=== PATIENT | male | born 1955 | race Caucasian/White ===

== ENCOUNTER 2019-02-08 15:10 | Outpatient (CLI) | payer BC ==
--- NOTE | 2019-02-08 15:25 | RAD ---
EXAM: Two views chest PROVIDED CLINICAL HISTORY: Cough. Shortness of breath and wheezing for 2 months. COMPARISON: 11/21/2015 FINDINGS: Cardiac silhouette and pulmonary vasculature are within normal limits. The lungs are clear. Postsurg ical changes lower cervical spine are noted. There is a rounded area of increased density seen in the lower mediastinum on the frontal projection with associated small gas density. Patient was shown to have small hiatal hernia on CT abdomen on 05/25/2016. No other interval change. Vascular locations are seen in the thoracic aorta IMPRESSION: 1. No acute cardiopulmonary process. 2. Small hiatal hernia..
== END 2019-02-08 15:11 | disposition home or self-care (01) ==
LOC: BICRAD 15:10
PROVIDERS: ATTEND Physician Assistant
DX: R05 Cough (principal); K44.9 Diaphragmatic hernia without obstruction or gangrene
CPT/HCPCS: 71046

== ENCOUNTER 2019-03-06 07:10 | Outpatient (CLI) | payer BC | END 2019-03-06 07:11 | disposition home or self-care (01) | LOC: CP 07:10 | PROVIDERS: ATTEND Family Medicine | DX: J45.41 Moderate persistent asthma with (acute) exacerbation (principal) | CPT/HCPCS: 94010 ==

== ENCOUNTER 2020-08-24 05:37 | Observation (INO) | payer MEDICARE ==
[2020-08-21 14:50] VITALS: BMI 27.2
[2020-08-24] MEDS ORDERED: Ketorolac Tromethamine 30 MG/ML VIAL ONE (06:39)
[2020-08-24] MEDS ORDERED: Acetaminophen 500 MG TAB ONE (06:39)
[2020-08-24] MEDS ORDERED: Fentanyl 100 MCG/2 ML VIAL ONE (06:43)
[2020-08-24] MEDS ORDERED: XYLOCAINE 2%-EPI 1:100,000 20 ML VIAL ONE (06:58)
[2020-08-24] MEDS ORDERED: Bupivacaine 0.25% HCL 30 ML VIAL ONE (06:58)
[2020-08-24] MEDS ORDERED: Scopolamine 1.5 mg/72 hour Patch ONE (07:08)
[2020-08-24] MEDS ORDERED: Famotidine/PF 20 mg/2ml Vial ONE (07:13)
[2020-08-24] MEDS ORDERED: Midazolam HCl 2 mg/2 ml Vial ONE (07:14)
[2020-08-24] MEDS ORDERED: HYDROmorphone 2 MG/ML VIAL SLOW IVP PRN (09:16)
[2020-08-24] MEDS ORDERED: Promethazine HCl 25 MG/ML VIAL SLOW IVP PRN (09:16)
[2020-08-24] MEDS ORDERED: Meperidine HCl/PF 25 MG/ML VIAL SLOW IVP PRN (09:16)
[2020-08-24] MEDS ORDERED: Promethazine HCl 25 MG/ML VIAL IM PRN ×2 (09:16→18:28)
--- NOTE | 2020-08-24 10:39 | OP ---
DATE OF PROCEDURE: 08/24/2020 PREOPERATIVE DIAGNOSES: Hiatal hernia; gastroesophageal reflux disease, refractory to medical treatment; incisional hernia, umbilical area, prior repair; history of prostatectomy. POSTOPERATIVE DIAGNOSES: Hiatal hernia; gastroesophageal reflux disease, refractory to medical treatment; incisional hernia, umbilical area, prior repair; history of prostatectomy. PROCEDURES PERFORMED: Laparoscopic hiatal hernia repair over a 48-Namibian bougie; laparoscopic floppy Zakia fundoplication; completion upper endoscopy; incisional hernia repair without mesh, umbilical area, PDS sutures used. ANESTHESIA: General, local 0.5% Marcaine 30 mL mixed with 1% Xylocaine with epinephrine 20 mL. DESCRIPTION OF PROCEDURE: The patient was taken to the operating room, where under general anesthesia in reverse Trendelenburg position and dorsal lithotomy position, the abdomen was clipped of hair, prepared with ChloraPrep, and draped in routine fashion. Due to a prior supraumbilical midline incision, a right lateral subcostal incision was made. Pneumoperitoneum to 15 mmHg was obtained with a Veress needle, replaced with a 5 port, and laparoscope inserted. Right subxiphoid incision was made and left subxiphoid incision was made, and a 5 mm and 11 mm port placed respectively. Left lateral subcostal incision was made and a 5 port placed. A snake liver retractor was inserted through the right lateral subcostal port, reflecting the left lobe of the liver superiorly and cephalad. Hiatal hernia was identified. The lesser curvature, gastrohepatic ligament was taken down with the LigaSure in avascular plane preserving a gastric pedicle. Hiatus was dissected free circumferentially. Gastrosplenic ligament was taken down with LigaSure, mobilizing the upper third to half of fundus up to the hiatus, which was dissected free on the left circumferentially and a Omar drain was placed through an 11 mm port and held in place with a 5 mm port placed in the left lower quadrant umbilical level, slightly below. Bougie was placed under laparoscopic visualization from a 36 to 48-Namibian bougie. There was some restriction, so 48-Namibian was the largest. Posterior and anterior hiatus closed with 2 sutures of 0 Bralon with a tie knot. This was adequately tied without being overly tight. Zakia fundoplication was undertaken, wrapping the lower esophagus with the upper stomach and fundus, securing the wrap in a loose fashion, superiorly from the left and right sides to the esophagus about 2 cm inferiorly, stomach to stomach, and 2 cm inferior to that, stomach to stomach and another bite of the esophagus. The wrap was adequately floppy for floppy Zakia fundoplication and wrap looked good. Wrap was then secured to the right anterior crura with 0 Bralon tie knot. Endoscopy was performed revealing the scope passed easily visualizing the pylorus. Stomach was not torsed. Retroflexion revealed typical Zakia fundoplication changes. This visualized around the esophagus. Scope was withdrawn. Stomach was deflated. Gastropexy was undertaken fixating the stomach to the anterior abdominal wall. Left lateral subcostal with 0 Bralon. Once this was completed, adhesions to the previous hernia repair were taken down with the LigaSure. Omentum was freed from the abdominal wall. Pneumoperitoneum was reduced. All instruments were removed. Infraumbilical incision was made curvilinear and carried down through skin and subcutaneous tissue. Umbilical hernia repair was undertaken. Fascial defect was closed with interrupted sutures of 0 PDS [id number]. Subcutaneous tissue was approximated with 3-0 Monocryl and skin with subdermal 4-0 Monocryl. Left subxiphoid fascia was approximated with 0 Vicryl. All skin incisions were approximated with interrupted subdermal 4-0 Monocryl. Local anesthetic had been infiltrated in the skin and subcutaneous tissue about all port sites. The patient tolerated the procedure well. Job ID: [id number]
[2020-08-24] MEDS ORDERED: Rocuronium Bromide 10 MG/ML (10ML VIAL) ONE (10:46)
[2020-08-24] MEDS ORDERED: ePHEDrine 50 MG/ML VIAL ONE (10:46)
[2020-08-24] MEDS ORDERED: PROPOFOL 200 MG/20 ML VIAL ONE (10:46)
[2020-08-24] MEDS ORDERED: Ondansetron PF 4 MG/2 ML Vial ONE (10:46)
[2020-08-24] MEDS ORDERED: Glycopyrrolate 0.2 MG/ML 5 ML SYRINGE ONE ×2 (10:46)
[2020-08-24] MEDS ORDERED: Lidocaine 1% PF 5 ML VIAL ONE (10:46)
[2020-08-24] MEDS ORDERED: Dexamethasone 20 MG/5 ML VIAL ONE (10:46)
[2020-08-24] MEDS ORDERED: hydrALAZINE 20 MG/ML VIAL SLOW IVP PRN (11:08)
[2020-08-24] MEDS ORDERED: Morphine 2 MG/ML VIAL SLOW IVP PRN (11:08)
[2020-08-24] MEDS ORDERED: diphenhydrAMINE 50 MG/ML VIAL IVP PRN ×2 (11:08→18:28)
[2020-08-24] MEDS ORDERED: Hydrocodone-Acetamin 15 ML UDCUP PO PRN (11:08)
[2020-08-24] MEDS ORDERED: Ondansetron PF 4 MG/2 ML Vial IVP PRN ×2 (11:08→18:28)
[2020-08-24] MEDS: Ketorolac Tromethamine 30 MG/ML VIAL IVP SCH ×2 (12:49→17:59)
[2020-08-24] MEDS: Morphine 4 MG/ML VIAL SLOW IVP PRN ×2 (14:57→17:00)
[2020-08-24] MEDS: Lactated Ringer's 1,000 ML IV SCH (17:59)
[2020-08-24] MEDS ORDERED: Naloxone HCl 0.4 mg/ml Vial IV PRN (18:28)
[2020-08-24] MEDS ORDERED: Zolpidem Tartrate 5 MG TAB PO PRN (18:28)
[2020-08-24] MEDS ORDERED: diphenhydrAMINE 50 MG/ML VIAL IM PRN (18:28)
[2020-08-24] MEDS ORDERED: fentaNYL Citrate/PF 2,000 MCG in Sodium Chloride 0.9% 60 ML IV PRN (18:28)
[2020-08-24] MEDS ORDERED: diphenhydrAMINE 25 MG CAP PO PRN (18:28)
[2020-08-24] MEDS ORDERED: Communication Order-Pharmacy FS SCH (18:30)
[2020-08-24] MEDS ORDERED: Enoxaparin Sodium 40 MG/0.4 ML SYRINGE SC SCH (21:00)
[2020-08-24] MEDS: Pregabalin 75 MG CAP PO SCH (21:26)
[2020-08-25] MEDS: Lactated Ringer's 1,000 ML IV SCH (00:09)
[2020-08-25] MEDS: Ketorolac Tromethamine 30 MG/ML VIAL IVP SCH ×2 (00:09→05:57)
[2020-08-25 06:02] LABS: #Lymphocytes 1.2 thou/uL (1.20-3.40); #Neutrophils 8.9 thou/uL (1.40-6.50); %Basophils 0.1 % (0.0-1.0); %Eosinophils 0.2 % (0.0-10.0); %Lymphocytes 10.7 % (21.0-51.0); %Monocytes 8.6 % (0.0-10.0); %Neutrophils 80.4 % (42.0-75.0); Hemoglobin 10.1 g/dL (14.0-18.0); Mean Corpuscular HGB CONC 31.5 g/dL (32.0-36.0); Mean Corpuscular Hemoglobin 24.6 pg (27.0-31.0); Mean Corpuscular Volume 78.1 fL (78.0-98.0); Mean Platelet Volume 7.8 fL (7.4-10.4); Platelet Count 261 thou/uL (130-400); RBC Distribution Width 13.5 % (11.5-14.5); Red Blood Cell (RBC) Count 4.11 mill/uL (4.70-6.10)
[2020-08-25 06:29] LABS: Anion Gap 14 mmol/L (10-20); BUN (Urea Nitrogen) 10 mg/dL (8.4-25.7); Calc. Creatinine Clearance 102 mL/min (70-130); Calcium 8.2 mg/dL (7.8-10.44); Carbon Dioxide 22 mmol/L (23-31); Chloride 105 mmol/L (98-107); Glucose 108 mg/dL (80-115); Potassium 4.5 mmol/L (3.5-5.1); Sodium 136 mmol/L (136-145)
[2020-08-25] MEDS ORDERED: Ibuprofen 600 MG TAB PO PRN (08:17)
[2020-08-25] MEDS ORDERED: Acetaminophen 500 MG TAB PO PRN (08:17)
[2020-08-25] MEDS ORDERED: Naproxen 500 MG TAB PO PRN (08:18)
[2020-08-25] MEDS ORDERED: Hydrocodone-Acetamin 15 ML UDCUP PO PRN (08:22)
[2020-08-25 08:30] VITALS: BP 143/82; TEMP 97.7
[2020-08-25] MEDS ORDERED: cloNIDine 0.2 MG TAB PO SCH (09:00)
[2020-08-25] MEDS ORDERED: Pantoprazole 40 MG VIAL IVP SCH (09:00)
[2020-08-25] MEDS ORDERED: Non-Formulary Item 1 EACH (Dexlansoprazole [Dexilant] 60 MG Cap.Dr.Mp) PO SCH (09:00)
[2020-08-25] MEDS ORDERED: Montelukast Sodium 10 mg Tablet PO SCH (09:00)
[2020-08-25] MEDS ORDERED: Niacin 500 MG TAB PO SCH (09:00)
[2020-08-25] MEDS ORDERED: Loratadine 10 MG TAB PO SCH (09:00)
[2020-08-25] MEDS ORDERED: Amlodipine 10 MG TAB PO SCH (09:00)
[2020-08-25] MEDS: Pregabalin 75 MG CAP PO SCH (09:12)
--- NOTE | 2020-08-25 09:58 | DIS ---
DATE OF ADMISSION: 08/24/2020 DATE OF DISCHARGE: 08/25/2020 DISCHARGE DIAGNOSES: 1. Gastroesophageal reflux disease. 2. Hiatal hernia. 3. Incisional hernia, umbilical area. PROCEDURES PERFORMED: Laparoscopic hiatal hernia repair and floppy Zakia fundoplication over a 48-Bahamian Bougie, gastropexy, umbilical area incisional hernia repair without mesh, small defect, HOSPITAL COURSE: A 65-year-old male with the above complaints, had undergone EGD previously, now admitted for the above procedure, undergoing that procedure, observed overnight, tolerating full liquids, to advance diet slowly as tolerated. Initially, avoiding red meat, salads, bread. Activity as tolerated. Shower and bathe as needed. Resume home medications hydrocodone elixir 7.5 prescribed to use as needed. Follow up in my office in 2 to 3 weeks. Job ID: [id number]
== END 2020-08-25 11:07 | disposition home or self-care (01) ==
LOC: SDC 05:37 → SURG A 11:08 → INTOOBSV 11:08
PROVIDERS: ADMIT Specialist; ATTEND Specialist
PROC: 0DV44ZZ Restriction of Esophagogastric Junction, Percutaneous Endoscopic Approach (ICD-10-PCS; principal; 2020-08-24)
PROC: 0WQF0ZZ Repair Abdominal Wall, Open Approach (ICD-10-PCS; 2020-08-24)
DX: K44.9 Diaphragmatic hernia without obstruction or gangrene (principal); K43.2 Incisional hernia without obstruction or gangrene; K21.9 Gastro-esophageal reflux disease without esophagitis; G47.30 Sleep apnea, unspecified; Z85.46 Personal history of malignant neoplasm of prostate; Z79.899 Other long term (current) drug therapy
CPT/HCPCS: 43280; 49560; 80048; 85025; 86850; 86900; 86901; 86920; 97139; J3010; 36415; 96372; 96374; 96375; 96376; C9113; G0378; J0690; J1100; J1650; J1885; J2250; J2270; J2405; J2704; J3490; S0020; S0028

== ENCOUNTER 2021-05-29 13:41 | Emergency (ER) | payer MEDICARE | END 2021-05-29 14:47 | disposition left against medical advice (07) | LOC: ERS 13:41 | DX: Z53.21 Procedure and treatment not carried out due to patient leaving prior to being seen by health care provider (principal) ==

== ENCOUNTER 2023-07-25 08:43 | Outpatient (CLI) | payer MEDICARE ==
[2023-07-25 09:57] LABS: #Basophils 0.1 10x3/uL (0.0-0.2); #Eosinphils 0.1 10x3/uL (0.0-0.5); #Monocytes 0.6 10x3/uL (0.0-1.1); #Neutrophils 3.9 10x3/uL (1.5-8.4); %Eosinophils 1.8 % (0.0-6.0); %Lymphocytes 22.2 % (18.0-47.0); %Monocytes 9.6 % (0.0-10.0); %Neutrophils 64.7 % (40.0-75.0); Hematocrit 41.8 % (38.8-50.0); Hemoglobin 13.3 g/dL (13.5-17.5); Mean Corpuscular HGB CONC 31.8 g/dL (32.0-36.0); Mean Corpuscular Hemoglobin 24.3 pg (27.0-33.0); Mean Corpuscular Volume 76.4 fl (81.2-95.1); Mean Platelet Volume 10.3 fl (7.4-10.4); Platelet Count 250 10x3/uL (150-450); RBC Distribution Width 14.8 % (11.5-14.5); Red Blood Cell (RBC) Count 5.47 10x6/uL (4.32-5.72)
[2023-07-25 10:17] LABS: Anion Gap 15 mmol/L (10-20); BUN (Urea Nitrogen) 11 mg/dL (8.4-25.7); Calc. Creatinine Clearance 0 mL/min (70-130); Calcium 9.1 mg/dL (7.8-10.44); Carbon Dioxide 24 mmol/L (23-31); Chloride 105 mmol/L (98-107); Estimated GFR 74; Glucose 166 mg/dL (80-115); Potassium 3.6 mmol/L (3.5-5.1); Sodium 140 mmol/L (136-145)
== END 2023-07-25 08:44 | disposition home or self-care (01) ==
LOC: LABBT 08:43
PROVIDERS: ATTEND Surgery
DX: Z01.818 Encounter for other preprocedural examination (principal); K21.9 Gastro-esophageal reflux disease without esophagitis; K44.9 Diaphragmatic hernia without obstruction or gangrene
CPT/HCPCS: 80048; 85025; 93005; 93010

== ENCOUNTER 2023-08-01 05:44 | Observation (INO) | payer MEDICARE ==
[2023-07-25 09:12] VITALS: BMI 27.3
[2023-08-01] MEDS ORDERED: Sodium Chloride 0.9% 100 ML ONE ×2 (06:30→09:51)
[2023-08-01] MEDS ORDERED: CEFAZOLIN 2 GM VIAL ONE (06:30)
[2023-08-01] MEDS ORDERED: Bupivacaine 0.25% HCL 30 ML VIAL ONE (06:47)
[2023-08-01] MEDS ORDERED: EPINEPHrine 1 MG/ML VIAL ONE (06:47)
[2023-08-01] MEDS ORDERED: Propofol 500 MG/50 ML VIAL ONE (06:56)
[2023-08-01] MEDS ORDERED: Dexamethasone 20 MG/5 ML VIAL ONE ×2 (07:05→07:50)
[2023-08-01] MEDS ORDERED: Ondansetron PF 4 MG/2 ML Vial ONE (07:05)
[2023-08-01] MEDS ORDERED: Lidocaine 1% PF 5 ML VIAL ONE (07:05)
[2023-08-01] MEDS ORDERED: fentaNYL PF 100 MCG/2 ML SYRINGE ONE (07:05)
[2023-08-01] MEDS ORDERED: PROPOFOL 0 ML ONE (07:06)
[2023-08-01] MEDS ORDERED: Rocuronium Bromide 10 MG/ML (10ML VIAL) ONE (07:41)
[2023-08-01] MEDS ORDERED: Glycopyrrolate 0.2 MG/ML 5 ML SYRINGE ONE (07:52)
[2023-08-01] MEDS ORDERED: ePHEDrine Sulfate 50 MG/10 ML VIAL ONE (07:52)
[2023-08-01] MEDS ORDERED: PHENYLEPHRINE-NS 100 MCG/ML 10 ML SYRINGE ONE (08:19)
[2023-08-01] MEDS ORDERED: Dexmedetomidine 200 MCG/2 ML VIAL ONE (09:51)
[2023-08-01] MEDS ORDERED: SUGAMMADEX SODIUM 200 MG/2 ML VIAL ONE ×2 (09:53→10:06)
[2023-08-01] MEDS ORDERED: PROPOFOL 20 ML ONE (10:14)
[2023-08-01] MEDS ORDERED: Ondansetron PF 4 MG/2 ML Vial IVP PRN (10:32)
[2023-08-01] MEDS ORDERED: Dextrose 5% in Water 1,000 ML IV PRN (10:32)
[2023-08-01] MEDS ORDERED: Dextrose 50% Abboject 50 ML SYRINGE SLOW IVP PRN (10:32)
[2023-08-01] MEDS ORDERED: hydrALAZINE 20 MG/ML VIAL SLOW IVP PRN (10:32)
[2023-08-01] MEDS ORDERED: Ipratropium/Albuterol 3 ML NEB NEB PRN (10:32)
[2023-08-01] MEDS ORDERED: Glucagon 1 MG/ML KIT IM PRN (10:32)
[2023-08-01] MEDS ORDERED: Promethazine HCl 25 MG/ML VIAL IM PRN (10:32)
[2023-08-01] MEDS ORDERED: fentaNYL 50 mcg/mL 1 mL Vial ONE ×3 (11:12→12:46)
[2023-08-01] MEDS: Hydrocodone-Acetamin 15 ML UDCUP PO PRN (13:54)
[2023-08-01] MEDS: fentaNYL 50 mcg/mL 1 mL Vial SLOW IVP PRN (14:38)
[2023-08-01] MEDS: Sodium Chloride 0.9% 1,000 ML IV SCH (17:35)
[2023-08-01] MEDS: Ketorolac Tromethamine 30 MG (1 mL) VIAL IVP PRN (18:19)
[2023-08-01] MEDS: Montelukast Sodium 10 mg Tablet PO SCH (20:01)
[2023-08-01] MEDS: cloNIDine 0.2 MG TAB PO SCH (20:01)
[2023-08-01] MEDS: Pregabalin 75 MG CAP PO SCH (20:02)
[2023-08-01] MEDS: Pantoprazole 40 MG VIAL IVP SCH (20:02)
[2023-08-02] MEDS: Amlodipine 10 MG TAB PO SCH (09:20)
[2023-08-02] MEDS: Baclofen 10 MG TAB PO SCH (09:20)
[2023-08-02] MEDS: Enoxaparin 40 MG (0.4 mL) SYRINGE SC SCH (09:20)
[2023-08-02] MEDS: Hydrochlorothiazide 25 MG TAB PO SCH (09:21)
[2023-08-02 11:39] VITALS: BP 145/79; TEMP 97.9
== END 2023-08-02 14:35 | disposition home or self-care (01) ==
LOC: SDC 05:44 → SURG A 10:32
PROVIDERS: ADMIT Surgery; ATTEND Surgery
PROC: 0DV44ZZ Restriction of Esophagogastric Junction, Percutaneous Endoscopic Approach (ICD-10-PCS; principal; 2023-08-01)
PROC: 0BUT4JZ Supplement Diaphragm with Synthetic Substitute, Percutaneous Endoscopic Approach (ICD-10-PCS; 2023-08-01)
PROC: 0JBL0ZZ Excision of Right Upper Leg Subcutaneous Tissue and Fascia, Open Approach (ICD-10-PCS; 2023-08-01)
DX: K44.9 Diaphragmatic hernia without obstruction or gangrene (principal); D17.23 Benign lipomatous neoplasm of skin and subcutaneous tissue of right leg; K21.00 Gastro-esophageal reflux disease with esophagitis, without bleeding; I10 Essential (primary) hypertension; I25.10 Atherosclerotic heart disease of native coronary artery without angina pectoris; Z88.5 Allergy status to narcotic agent; Z88.8 Allergy status to other drugs, medicaments and biological substances
CPT/HCPCS: 27043; 43282; 96374; 96376 ×2; C1781; G0378 ×2; J0171; J3010 ×2; 88304; C9113; J0665; J1100; J1650; J1885; J2405; J2704; J3490; J7050